=== PATIENT | male | born 1940 | race Caucasian/White ===

== ENCOUNTER 2023-11-13 13:32 | Emergency (ER) | payer MEDICARE ==
[2023-11-13 14:14] LABS: BASOPHILS ABSOLUTE AUTO 0.1 x10-3/uL (0.0-0.3); BASOPHILS PERCENT AUTO 0.8 % (0.3-3.8); EOSINOPHILS ABSOLUTE AUTO 0.5 x10-3/uL (0.0-0.6); EOSINOPHILS PERCENT AUTO 5.1 % (0.1-6.8); HEMATOCRIT 31.3 % (38.3-50.1); HEMOGLOBIN 10.2 g/dL (12.9-17.7); LYMPHOCYTES PERCENT AUTO 10.9 % (15.8-45.3); MEAN CORPUSCULAR HEMOGLOBIN 25.9 pg (27.0-33.3); MEAN CORPUSCULAR HGB CONC 32.4 g/dL (28.7-35.3); MEAN CORPUSCULAR VOLUME 79.9 fL (80.8-98.7); MEAN PLATELET VOLUME 6.7 fL (6.7-11.0); MONOCYTES ABSOLUTE AUTO 0.6 x10-3/uL (0.0-1.2); MONOCYTES PERCENT AUTO 6.2 % (5.5-15.2); NEUTROPHILS ABSOLUTE AUTO 7.3 x10-3/uL (1.7-6.9); PLATELET COUNT,PLT 298 x10(3)uL (117-477); RED BLOOD CELL COUNT 3.93 x10(6)uL (3.90-5.90); RED CELL DISTRIBUTION WIDTH 14.6 % (12.4-15.0); WHITE BLOOD CELL COUNT,WBC 9.5 x10-3/uL (3.2-10.1)
[2023-11-13 14:28] LABS: BLOOD UREA NITROGEN,BUN 19 mg/dL (7-18); BUN/CREATININE RATIO 13.6 (9-20); CALCIUM 9.2 mg/dL (8.6-10.2); CARBON DIOXIDE,CO2 34 mmol/L (21-32); CHLORIDE,CL 101 mmol/L (100-110); CREATININE 1.4 mg/dL (0.70-1.30); ESTIMATED GFR 50 mL/min (>60); GLUCOSE RANDOM 98 mg/dL (80-116); POTASSIUM,K 4.5 mmol/L (3.5-5.3); SODIUM,NA 139 mmol/L (135-145)
[2023-11-13 14:34] LABS: ALANINE AMINOTRANSFERASE,ALT 32 U/L (12-36); ALBUMIN 3.7 g/dL (3.2-4.6); ALKALINE PHOSPHATASE 92 IU/L (56-112); ASPARTATE AMNIOTRANSFERASE,AST 26 IU/L (5-25); BILIRUBIN TOTAL 0.8 mg/dL (0.1-1.3); PROTEIN TOTAL,TP 7.4 g/dL (6.0-8.0)
[2023-11-13 14:35] LABS: LACTIC ACID 1.2 mmol/L (0.4-2.0)
[2023-11-13 14:38] LABS: C-REACTIVE PROTEIN 1.31 mg/dL (<0.50)
[2023-11-13] MEDS: Albuterol/Ipratropium 3.0-0.5 MG/3 ML Neb Soln NEB ONE (14:44)
[2023-11-13] MEDS: Furosemide 40 MG/4 ML VIAL IVPUSH ONE (14:44)
== END 2023-11-13 16:41 | disposition home or self-care (01) ==
LOC: FB.ED 13:32
DX: I50.9 Heart failure, unspecified (principal); I48.91 Unspecified atrial fibrillation; J44.1 Chronic obstructive pulmonary disease with (acute) exacerbation; N18.31 Chronic kidney disease, stage 3a; K21.9 Gastro-esophageal reflux disease without esophagitis; Z79.899 Other long term (current) drug therapy
CPT/HCPCS: 36415; 71046; 80053; 83605; 83735; 83880; 84484; 85025; 86140; 93005; 94640; 96374; 99285; J1940; J7620